=== PATIENT | female | born 1995 | race Caucasian/White ===

== ENCOUNTER 2021-11-11 12:51 | Emergency (ER) | payer OTHER ==
[~2021-11-11] VITALS: Ht 162.6 cm; Wt 71.0 kg
[2021-11-11 12:56] VITALS: BP 133/77
[2021-11-11] MEDS ORDERED: KETOROLAC 30MG/ML VIAL IM ONE (13:30)
[2021-11-11] MEDS ORDERED: NAPR-1176 MT (14:54)
[2021-11-11] MEDS ORDERED: CYCL10TA21 MT (14:54)
== END 2021-11-11 15:20 | disposition home or self-care (01) ==
LOC: ER 12:51
DX: S70.01XA Contusion of right hip, initial encounter (principal); S40.021A Contusion of right upper arm, initial encounter; S39.012A Strain of muscle, fascia and tendon of lower back, initial encounter; S16.1XXA Strain of muscle, fascia and tendon at neck level, initial encounter; W01.0XXA Fall on same level from slipping, tripping and stumbling without subsequent striking against object, initial encounter; Y93.89 Activity, other specified; Y92.512 Supermarket, store or market as the place of occurrence of the external cause; Y99.8 Other external cause status
CPT/HCPCS: 73090; 73502; 81025; 96372; 99284; J1885

== ENCOUNTER 2021-11-12 09:23 | Emergency (ER) | payer MEDICAID, OTHER ==
[~2021-11-12] VITALS: Ht 152.4 cm; Wt 109.0 kg
[~2021-11-12 09:23] MED LIST: CYCL10TA21 MT; NAPR-1176 MT
[2021-11-12 09:34] VITALS: BP 124/77
[2021-11-12] MEDS ORDERED: ACETAMINOPHEN 325MG TABLET PO ONE (10:15)
== END 2021-11-12 15:20 | disposition home or self-care (01) ==
LOC: ER 09:23
DX: M25.511 Pain in right shoulder (principal); W18.30XA Fall on same level, unspecified, initial encounter; Y93.01 Activity, walking, marching and hiking; Y92.89 Other specified places as the place of occurrence of the external cause; Y99.8 Other external cause status
CPT/HCPCS: 70551; 81025; 99284